=== PATIENT | male | born 1960 | race African-American/Black ===

== ENCOUNTER 2020-02-02 05:41 | Inpatient (IN) | payer MEDICAID ==
[2020-02-02] VITALS (12 sets, daily range): BP systolic 97–144; BP diastolic 54–102; Ht 185.4 cm; Wt 66.5 kg
[~2020-02-02] VITALS: Ht 185.4 cm; Wt 66.5 kg
[2020-02-02 06:27] LABS: BASOPHILS 0.2 % (0-2); EOSINOPHILS 4.3 % (0-7); HEMATOCRIT 40.5 % (42.0-54.0); HEMOGLOBIN 14.4 g/dL (13.5-17.5); IMMATURE GRANULOCYTES 0.2 % (0-5); LYMPHOCYTES 18.8 % (15-50); MCH 27.8 pg (26.0-34.0); MCHC 35.6 g/dL (31.0-37.0); MCV 78.2 fL (80.0-100.0); MEAN PLATELET VOLUME 9.1 fL (7.4-10.4); MONOCYTES 9.9 % (2-11); NEUTROPHILS 66.6 % (40-80); PLATELET COUNT 224 10x3/uL (130-400); RBC 5.18 10x6/uL (4.20-6.10); RDW 14.3 % (11.5-14.5); WBC 8.3 10x3/uL (4.8-10.8)
[2020-02-02 06:31] LABS: CALC OSMOLALITY 278 mosm/kg (275-300); CALCIUM 9.5 mg/dL (8.5-10.1); CARBON DIOXIDE 29.5 mmol/L (21.0-32.0); CHLORIDE - SERUM 106 mmol/L (98-107); GLUCOSE 88 mg/dL (74-106); POTASSIUM - SERUM 4.1 mmol/L (3.5-5.1); SODIUM 140 mmol/L (136-145); UREA NITROGEN 15 mg/dL (7-18); eGFR NON AFRICAN AMERICAN 81 mL/min (90-120)
[2020-02-02 06:38] LABS: INR 1.02 (0.85-1.17); PROTIME 13.4 SECONDS (11.6-15.0)
[2020-02-02 06:40] LABS: ALBUMIN 3.8 g/dL (3.4-5.0); ALKALINE PHOSPHATASE 96 U/L (30-120); ALT (SGPT) 16 U/L (10-68); AMYLASE - SERUM 64 U/L (25-115); BILIRUBIN - TOTAL 0.71 mg/dL (0.2-1.3); LIPASE 95 U/L (73-393); TROPONIN-I < 0.017 ng/mL (0.000-0.060)
[2020-02-02 07:30] LABS: BACTERIA FEW /hpf (NEGATIVE); BILIRUBIN NEGATIVE (NEGATIVE); GLUCOSE NEGATIVE (NEGATIVE); KETONE NEGATIVE (NEGATIVE); NITRITE NEGATIVE (NEGATIVE); RED CELLS - URINE 0-5 /hpf (0-5); SPECIFIC GRAVITY 1.015 (1.005-1.020); UROBILINOGEN NORMAL (NORMAL); WHITE CELLS - URINE OCC /hpf (NEGATIVE)
[2020-02-02 07:31] LABS: EPITHELIAL CELLS OCC /hpf (0-5)
--- NOTE | 2020-02-02 08:35 | NUR ---
ADMITTED BLACK MALE FROM ER PER STRETCHER. AWAKE AND ALERT SKIN WARM AND DRY. STATES " I DON'T KNOW TO MOST QUESTIONS" CAN GIVE AN ANSWER AFTER HE THINKS ABOUT IT. REORIENTATED TO WHAT HOSPITAL HE IS IN. STATES HE HAS NOT BEEN IN [place] VERY LONG. LIVES AT [facility]. DID NOT KNOW WHICH PHARMACY HE USES HAD TO CALL NINO THE OG WHO TRANSPORTS HIM TO FIND OUT. COULD NOT REMEMBER MEDS ALEVE HE TAKES FOR GUM PAIN. STATES HE HAS BEEN ON ANTIBIOTICS FOR DRAINAGE. HAD 3 TEETH PULLED RECENTLY. IV LEFT FOREARM INFUSING WITH PROTONIX AT 8 MG HOUR. RIGHT FOREARM SALINE LOCK. NO REDNESS OR SWELLING FROM SITES. COOPERATIVE. MONITOR SB. SKIN INTACT NO SKIN BREAKDOWN NOTED. SCAR ON ABD
[2020-02-02] MEDS ORDERED: ALEVE220 MG PO (08:59)
[2020-02-02] MEDS ORDERED: IBUPROFEN200 MG PO (09:01)
[2020-02-02] MEDS ORDERED: KEFLEX500 MG PO (09:02)
--- NOTE | 2020-02-02 10:35 | NUR ---
DR. PEDRAZA NOTIFIED OF CONSULT
--- NOTE | 2020-02-02 19:29 | NUR ---
[facility]237 PER WHEEL CHAIR.
[2020-02-03 04:00] VITALS: BP 113/57
--- NOTE | 2020-02-03 04:21 | NUR ---
PATIENT FROM ICU VIA WHEEL CHAIR WITH ICU STAFF ALERT AND ORENTED X4 ABLE TO VOICE NEEDS AND WANTS TO STAFF UP AT [facility], IV TO LEFT F.A. WITH PROTONIX AT 8MG/HR. IV IN RIGHT F.A WITH NO FLUIDS. HAD ONE BM THIS SHIFT WITH BLOOD. RESTING AT THIS TIME WITH NO NEEDS CALL LIGHT IN REACH. NO S/S OF DISTRESS.
[2020-02-03 05:23] LABS: BASOPHILS 0.3 % (0-2); EOSINOPHILS 5.7 % (0-7); HEMATOCRIT 37.1 % (42.0-54.0); HEMOGLOBIN 13.1 g/dL (13.5-17.5); IMMATURE GRANULOCYTES 0.2 % (0-5); LYMPHOCYTES 36.2 % (15-50); MCH 27.5 pg (26.0-34.0); MCHC 35.3 g/dL (31.0-37.0); MCV 77.8 fL (80.0-100.0); MEAN PLATELET VOLUME 8.6 fL (7.4-10.4); MONOCYTES 7.9 % (2-11); NEUTROPHILS 49.7 % (40-80); PLATELET COUNT 197 10x3/uL (130-400); RBC 4.77 10x6/uL (4.20-6.10); RDW 14.2 % (11.5-14.5)
[2020-02-03 05:29] LABS: WBC 6.2 10x3/uL (4.8-10.8)
[2020-02-03 05:47] LABS: ALKALINE PHOSPHATASE 81 U/L (30-120); ALT (SGPT) 13 U/L (10-68); BILIRUBIN - TOTAL 0.66 mg/dL (0.2-1.3); CALC OSMOLALITY 279 mosm/kg (275-300); CALCIUM 8.6 mg/dL (8.5-10.1); CARBON DIOXIDE 27.7 mmol/L (21.0-32.0); CHLORIDE - SERUM 107 mmol/L (98-107); GLUCOSE 88 mg/dL (74-106); POTASSIUM - SERUM 3.7 mmol/L (3.5-5.1); PROTEIN - SERUM 5.9 g/dL (6.4-8.2); SODIUM 141 mmol/L (136-145); UREA NITROGEN 13 mg/dL (7-18); eGFR NON AFRICAN AMERICAN 81 mL/min (90-120)
--- NOTE | 2020-02-03 06:55 | NUR ---
ALERT AND ORIENTED, RESTING IN BED WITH EYES OPEN. NO C/O PAIN. NO S/S OF ACUTE DISTRESS NOTED. IV TO LEFT FOREARM, PROTONIX INFUSING @ 8ML/HR. SITE PATENT WITHOUT REDNESS OR SWELLING. DENIES ANY NEEDS AT THIS TIME. CALL LIGHT IN REACH. WILL CONTINUE TO MONITOR.
[2020-02-03 09:03] VITALS: BP 133/79
--- NOTE | 2020-02-03 12:16 | MORECARE ---
CASE MANAGEMENT DISCHARGE SUMMARY PATIENT: MI ANNE UNIT: [id number] ADM DATE: 02/02/20 AGE: 59 : 56 SEX: M ROOM/BED: D.2237 AUTHOR: ALDA SNELL PHYSICIAN: REFERRING PHYSICIAN: FLORENCE ELLIS MD DATE OF SERVICE: 02/03/20 Discharge Plan Patient Name: MI ANNE [facility] [facility] 1960 Planned Disposition: Oth Inst w Planned Readm Anticipated Discharge Date: 02/03/20 Discharge Date: Expected LOS: 1 Initial Reviewer: [email or web address] Initial Review Date: 02/03/2020 Generated: 02/03/20 1:16 pm DCPIA - Discharge Planning Initial Assessment Updated by [email or web address]: Berkley Mckeon on 02/03/20 12:13 pm * Is the patient Alert and Oriented? Yes * How many steps to enter\exit or inside your home? 0/1 flight * PCP None * Pharmacy [facility] on [address] * Preadmission Environment Fpc * Facility Name [facility] * ADLs Independent * Equipment None * List name and contact numbers for known caregivers / representatives who currently or will assist patient after discharge: Jesus Anne - brother - [phone] * Verbal permission to speak to the caregivers and representatives has been obtained from the patient. Yes * Community resources currently utilized None * Additional services required to return to the preadmission environment? No * Can the patient safely return to the preadmission environment? Yes * Has this patient been hospitalized within the prior 30 days at any hospital? No Patient Name: MI ANNE Page [id number] at 1216 All edits/amendments must be made on the electronic document DICTATION DATE: 02/03/20 1216 CORE FINISHER: SHERRON 02/03/20 1216 RPT#: [id number] DC DATE: STATUS: ADM IN [facility] [address] [place] [address] END OF REPORT
--- NOTE | 2020-02-03 12:47 | NUR ---
DISCHARGED PATIENT HOME WITH FAMILY. DISCONTINUED IV'S, CATHETER TIP INTACT. WENT OVER DISCHARGE INSTRUCTIONS WITH PATIENT, VERBALIZED UNDERSTANDING. DENIES ANYTHING FURTHER.
--- NOTE | 2020-02-03 13:33 | MORECARE ---
CASE MANAGEMENT DISCHARGE SUMMARY PATIENT: MI ANNE UNIT: [id number] ADM DATE: 02/02/20 AGE: 59 : 56 SEX: M ROOM/BED: D.2237 AUTHOR: ALIS,DOC PHYSICIAN: REFERRING PHYSICIAN: FLORENCE ELLIS MD DATE OF SERVICE: 02/03/20 Discharge Plan Patient Name: MI ANNE Facility: [facility]:[place] : 1960 Planned Disposition: Oth Inst w Planned Readm Anticipated Discharge Date: 02/03/20 Discharge Date: 02/03/2020 Expected LOS: 1 Initial Reviewer: [email or web address] Initial Review Date: 02/03/2020 Generated: 02/03/20 2:33 pm Comments DCP- Discharge Planning Updated by [email or web address]: Berkley Mckeon on 02/03/20 11:[address] Patient Name: MI ANNE Admission Status: Elective Accout number: [id number] Admission Date: 02-02-2020 : 1960 Admission Diagnosis: Attending: ARIAN ELLIS Current LOS: 1 Anticipated DC Date: 02-03-2020 Planned Disposition: Oth Inst w Planned Readm Primary Insurance: MEDICAID [place] Discharge Planning Comments: CM met with patient to complete initial dc planning assessment. CM educated patient on the CM role and verbal consent given by patient to complete assessment. Patient lives at [facility]. States he has been there about 4 months. States he has a ride from [facility] waiting down stairs for him to take him back. At discharge patient plans to return and feels this is a safe discharge. CM discussed availability of home health, rehab services, and medical equipment. Patient denied known discharge needs at this time. I gave him the number to [facility] so that he can call and get a primary care doctor. CM will continue to follow and will assist as needed with dc plans/needs. Bar Turner: Berkley Mckeon DCPIA - Discharge Planning Initial Assessment Updated by [email or web address]: Berkley Mckeon on 02/03/20 12:13 pm * Is the patient Alert and Oriented? Yes * How many steps to enter\exit or inside your home? 0/1 flight * PCP None * Pharmacy [facility] on [address] * Preadmission Environment [facility] * Facility Name [facility] * ADLs Independent * Equipment None * List name and contact numbers for known caregivers / representatives who currently or will assist patient after discharge: Jesus Anne - brother - [phone] * Verbal permission to speak to the caregivers and representatives has been obtained from the patient. Yes * Community resources currently utilized None * Additional services required to return to the preadmission environment? No * Can the patient safely return to the preadmission environment? Yes * Has this patient been hospitalized within the prior 30 days at any hospital? No Last DP export: 02/03/20 11:16 am Patient Name: MI ANNE Page [id number] at 1333 All edits/amendments must be made on the electronic document DICTATION DATE: 02/03/203 BAR SUPERVISOR: SHERRON 02/03/20 1333 RPT#: [id number] DC DATE:02/03/20 STATUS: DIS IN [facility] [address] [place] [address] END OF REPORT
--- NOTE | 2020-02-04 13:49 | MORECARE ---
CASE MANAGEMENT DISCHARGE SUMMARY PATIENT: MI ANNE UNIT: [id number] ADM DATE: 02/02/20 AGE: 59 : 56 SEX: M ROOM/BED: D.2237 AUTHOR: ALDA SNELL PHYSICIAN: REFERRING PHYSICIAN: FLORENCE ELLIS MD DATE OF SERVICE: 02/04/20 Discharge Plan Patient Name: MI NANE Facility: [facility]:[place] : 1960 Planned Disposition: Oth Inst w Planned Readm Anticipated Discharge Date: 02/03/20 Discharge Date: 02/03/2020 Expected LOS: 1 Initial Reviewer: [email or web address] Initial Review Date: 02/03/2020 Generated: 02/04/20 2:48 pm Comments DCP- Discharge Planning Updated by [email or web address]: Calli Ghotra on 02/04/20 12:[address] PATIENT CALLED THIS AFTERNOON (02/03) ABOUT BLEEDING AGAIN, I TOLD HIM HE NEEDED TO GO TO THE ER TO BE CHECKED OUT DCP- Discharge Planning Updated by [email or web address]: Berkley Mckeon on 02/03/20 11:[address] Patient Name: MI ANNE Admission Status: Elective Accout number: [id number] Admission Date: 02-02-2020 : 1960 Admission Diagnosis: Attending: ARIAN ELLIS Current LOS: 1 Anticipated DC Date: 02-03-2020 Planned Disposition: Oth Inst w Planned Readm Primary Insurance: MEDICAID [place] Discharge Planning Comments: CM met with patient to complete initial dc planning assessment. CM educated patient on the CM role and verbal consent given by patient to complete assessment. Patient lives at [facility]. States he has been there about 4 months. States he has a ride from [facility] waiting down stairs for him to take him back. At discharge patient plans to return and feels this is a safe discharge. CM discussed availability of home health, rehab services, and medical equipment. Patient denied known discharge needs at this time. I gave him the number to [facility] so that he can call and get a primary care doctor. CM will continue to follow and will assist as needed with dc plans/needs. Associate Professor Of Anthropology: Berkley Mckeon DCPIA - Discharge Planning Initial Assessment Updated by [email or web address]: Berkley Mckeon on 02/03/20 12:13 pm * Is the patient Alert and Oriented? Yes * How many steps to enter\exit or inside your home? 0/1 flight * PCP None * Pharmacy [facility] * Preadmission Environment [facility] * Facility Name [facility] * ADLs Independent * Equipment None * List name and contact numbers for known caregivers / representatives who currently or will assist patient after discharge: Jesus Anne - brother - [phone] * Verbal permission to speak to the caregivers and representatives has been obtained from the patient. Yes * Community resources currently utilized None * Additional services required to return to the preadmission environment? No * Can the patient safely return to the preadmission environment? Yes * Has this patient been hospitalized within the prior 30 days at any hospital? No Last DP export: 02/03/20 12:33 pm Patient Name: MI ANNE Page [id number] at 1349 All edits/amendments must be made on the electronic document DICTATION DATE: 02/04/20 1348 BREAKER ENGINEER: SHERRON 02/04/20 1348 RPT#: [id number] DC DATE:02/03/20 STATUS: DIS IN [facility] [address] [place] [address] END OF REPORT
[2020-02-04] MEDS ORDERED: ANUSOL-HC 2.5%30 GM RC (17:14)
== END 2020-02-03 12:48 | disposition home or self-care (01) | DRG 379 ==
LOC: D.ER 05:41 → D.ICU 07:09 → D.MS 07:09
PROVIDERS: Family Medicine; ADMIT Emergency Medicine; ATTEND Emergency Medicine
DX: K92.2 Gastrointestinal hemorrhage, unspecified (principal); R19.5 Other fecal abnormalities; F17.200 Nicotine dependence, unspecified, uncomplicated; K62.5 Hemorrhage of anus and rectum

== ENCOUNTER 2020-02-04 14:48 | Emergency (ER) | payer MEDICAID ==
[~2020-02-04] VITALS: Ht 185.4 cm; Wt 70.5 kg
[~2020-02-04 14:48] MED LIST: ALEVE220 MG PO; IBUPROFEN200 MG PO; KEFLEX500 MG PO
[2020-02-04 14:56] VITALS: BP 117/77; Ht 185.4 cm; Wt 70.5 kg
[2020-02-04 15:21] LABS: BASOPHILS 0.4 % (0-2); HEMATOCRIT 38.9 % (42.0-54.0); IMMATURE GRANULOCYTES 0.2 % (0-5); LYMPHOCYTES 43.1 % (15-50); MCV 77.8 fL (80.0-100.0); MEAN PLATELET VOLUME 8.9 fL (7.4-10.4); MONOCYTES 6.3 % (2-11); PLATELET COUNT 212 10x3/uL (130-400); RDW 14.1 % (11.5-14.5); WBC 5.6 10x3/uL (4.8-10.8)
[2020-02-04 15:38] LABS: APTT 35.2 SECONDS (22.8-39.4); INR 1.08 (0.85-1.17)
[2020-02-04 15:39] LABS: CALC OSMOLALITY 286 mosm/kg (275-300); CALCIUM 9.3 mg/dL (8.5-10.1); CARBON DIOXIDE 28.3 mmol/L (21.0-32.0); CHLORIDE - SERUM 108 mmol/L (98-107); GLUCOSE 111 mg/dL (74-106); POTASSIUM - SERUM 3.8 mmol/L (3.5-5.1); SODIUM 143 mmol/L (136-145); UREA NITROGEN 15 mg/dL (7-18); eGFR NON AFRICAN AMERICAN 81 mL/min (90-120)
[2020-02-04 15:46] LABS: ALBUMIN 3.6 g/dL (3.4-5.0); ALKALINE PHOSPHATASE 94 U/L (30-120); BILIRUBIN - TOTAL 0.63 mg/dL (0.2-1.3); PROTEIN - SERUM 6.9 g/dL (6.4-8.2)
[2020-02-04 15:48] LABS: ALT (SGPT) 19 U/L (10-68)
[2020-02-04] MEDS ORDERED: ANUSOL-HC 2.5%30 GM RC (17:14)
== END 2020-02-04 17:30 | disposition home or self-care (01) ==
LOC: D.ER 14:48
PROVIDERS: Family Medicine
DX: K62.5 Hemorrhage of anus and rectum (principal); K64.9 Unspecified hemorrhoids